=== PATIENT | female | born 1990 | race Two or more races ===

== ENCOUNTER → 2025-05-18 | Outpatient (CLI) | payer BC, SELFPAY ==
--- NOTE | 2025-05-18 | XR_ITS ---
Examination: Foot bilateral, 6 views Technique: AP, oblique, lateral views each foot total 6 views Date and time of exam: May 18, 2025 0752 hours INDICATIONS: Foot pain and swelling beginning 5 years ago FINDINGS: No fracture or dislocation involving either foot. No cortical bone destruction. No opaque foreign bodies IMPRESSION: No fractures or dislocations. No cortical bone destruction
--- NOTE | 2025-05-18 | XR_ITS ---
Examination: Bilateral os calcis TECHNIQUE: Axial lateral right and left os calcis total 4 views May 18, 2025 0803 hours INDICATIONS: Heel pain 5 years. FINDINGS: No fracture or dislocation. No cortical bone destruction. No opaque foreign bodies IMPRESSION: Negative examination
--- NOTE | 2025-05-18 | XR_ITS ---
Examination: Knee bilateral, 6 views Technique: Knee AP, lateral, oblique each knee total 6 views INDICATIONS: Bilateral knee pain 5 years. Date and time: May 18, 2025 0752 hours FINDINGS: No fracture or dislocation involving either knee No significant arthritic change No opaque foreign bodies IMPRESSION: No fracture or significant arthritic change involving either knee
== END | disposition home or self-care (01) ==
LOC: CDIM 07:41
PROVIDERS: PCP Student in an Organized Health Care Education/Training Program; Referring Provider Student in an Organized Health Care Education/Training Program; Visit Provider Student in an Organized Health Care Education/Training Program
DX: M25.562 Pain in left knee (principal); M25.561 Pain in right knee; M79.673 Pain in unspecified foot; M25.50 Pain in unspecified joint
CPT/HCPCS: 73562; 73630; 73650